=== PATIENT | female | born 2000 | race Hispanic/Latino ===

== ENCOUNTER 2023-01-24 21:26 | Emergency (ER) | payer OTHER ==
[2023-01-24 22:44] LABS: SARS-CoV-2 NAA Rapid Test Not Detected (NotDetected)
== END 2023-01-24 23:14 | disposition home or self-care (01) ==
LOC: CSHERS 21:26
DX: O99.891 Other specified diseases and conditions complicating pregnancy (principal); R11.0 Nausea; Z20.822 Contact with and (suspected) exposure to COVID-19; Z3A.38 38 weeks gestation of pregnancy
CPT/HCPCS: 99283

== ENCOUNTER 2023-02-09 10:37 | Inpatient (IN) | payer OTHER ==
[2023-02-09 21:39] VITALS: BMI 34.0
[2023-02-09] MEDS ORDERED: Ondansetron PF 4 MG/2 ML Vial IVP PRN (21:40)
[2023-02-09] MEDS ORDERED: hydrALAZINE 20 MG/ML VIAL SLOW IVP PRN (21:40)
[2023-02-09] MEDS ORDERED: Ibuprofen 800 MG TAB PO PRN (21:40)
[2023-02-09] MEDS ORDERED: Promethazine HCl 25 MG/ML VIAL IM PRN (21:40)
[2023-02-09] MEDS ORDERED: Oxytocin 30 units/NS 500 ML 500 ML IV SCH ×3 (21:40)
[2023-02-09] MEDS ORDERED: Methylergonovine 0.2 MG/ML VIAL IM PRN (21:40)
[2023-02-09] MEDS ORDERED: Carboprost 250 MCG/ML AMP IM PRN (21:40)
[2023-02-09] MEDS ORDERED: Diphenoxylate HCl/Atropine Tablet PO PRN (21:40)
[2023-02-09] MEDS ORDERED: Misoprostol 200 MCG TAB PR PRN (21:40)
[2023-02-09] MEDS ORDERED: fentaNYL 50 mcg/mL 1 mL Vial SLOW IVP PRN (21:40)
[2023-02-09] MEDS ORDERED: Acetaminophen 500 MG TAB PO PRN (21:40)
[2023-02-09] MEDS ORDERED: Tranexamic Acid 1,000 MG/10 ML VIAL IVP PRN (21:40)
[2023-02-09] MEDS ORDERED: Lidocaine 1% (PF) 30 ML VIAL SC PRN (21:40)
[2023-02-09] MEDS ORDERED: HYDROcodone/Acetaminophen 5/325 mg Tablet PO PRN (21:40)
[2023-02-09] MEDS: Lactated Ringer's 1,000 ML IV SCH (22:23)
[2023-02-09 22:42] LABS: Hemoglobin 12.1 g/dL (12.0-15.5); Mean Corpuscular HGB CONC 34.6 g/dL (32.0-36.0); Mean Corpuscular Hemoglobin 31.8 pg (27.0-33.0); Mean Corpuscular Volume 92.1 fl (81.6-98.3); Mean Platelet Volume 9.8 fl (7.4-10.4); Platelet Count 268 10x3/uL (150-450); RBC Distribution Width 13.2 % (11.5-14.5); White Blood Cell (WBC) Count 10.8 10x3/uL (3.5-10.5)
[2023-02-09] MEDS: Misoprostol 100 MCG TAB VAG SCH (22:48)
[2023-02-09 23:18] LABS: HBSAg Index 0.17 S/CO (0-0.99); Hep B Surf Ag - L&D Non-Reactive S/CO (NonReactive)
[2023-02-09 23:19] LABS: Syphilis Antibody Nonreactive (Nonreactive); Syphilis Antibody Index 0.05 S/CO (<1.00 Non-Reactive)
[2023-02-10] MEDS: Lactated Ringer's 1,000 ML IV SCH (02:57)
[2023-02-10 07:55] LABS: RapidComm Collect By CBN
[2023-02-10 07:56] LABS: RapidComm Collect By CBN; pH (Cord, venous) 7.335 (7.250-7.350)
[2023-02-10] MEDS ORDERED: Benzocaine-Menthol 82.5 ML CAN TOP PRN (08:30)
[2023-02-10] MEDS ORDERED: Oxytocin 30 units/NS 500 ML 500 ML IV SCH (08:30)
[2023-02-10] MEDS ORDERED: Ferrous Sulfate 325 MG TAB PO SCH (08:30)
[2023-02-10] MEDS ORDERED: Lanolin Ointment 7 GM TUBE TOP PRN (08:30)
[2023-02-10] MEDS ORDERED: HYDROcodone/Acetaminophen 5/325 mg Tablet PO PRN (08:30)
[2023-02-10] MEDS ORDERED: diphenhydrAMINE 25 MG CAP PO PRN (08:30)
[2023-02-10] MEDS ORDERED: Ondansetron PF 4 MG/2 ML Vial IVP PRN (08:30)
[2023-02-10] MEDS ORDERED: hydrALAZINE 20 MG/ML VIAL SLOW IVP PRN (08:30)
[2023-02-10] MEDS ORDERED: Boostrix 0.5 ML (Tdap) VIAL (>/=7 yrs of age) IM ONE (08:30)
[2023-02-10] MEDS ORDERED: Bisacodyl 10 MG SUPP PR PRN (08:30)
[2023-02-10] MEDS ORDERED: Promethazine HCl 25 MG/ML VIAL IM PRN (08:30)
[2023-02-10] MEDS ORDERED: Milk Of Magnesia 30 ML UDCUP PO PRN (08:30)
[2023-02-10] MEDS: Docusate 100 MG CAP PO SCH ×2 (09:20→20:56)
[2023-02-10] MEDS: Prenatal Vitamin 1 TAB PO SCH (09:20)
[2023-02-10] MEDS: Misoprostol 100 MCG TAB VAG SCH ×2 (12:55→12:56)
[2023-02-10] MEDS: Ibuprofen 800 MG TAB PO SCH ×2 (14:14→20:56)
[2023-02-11] MEDS: Ibuprofen 800 MG TAB PO SCH (05:15)
[2023-02-11 07:47] VITALS: BP 131/76; TEMP 98.4
[2023-02-11] MEDS: Docusate 100 MG CAP PO SCH (08:44)
[2023-02-11] MEDS: Prenatal Vitamin 1 TAB PO SCH (08:44)
== END 2023-02-11 11:55 | disposition home or self-care (01) | DRG 807 ==
LOC: CSHLD 21:10 → CSHPP 02-10 10:09
PROVIDERS: ADMIT Family Medicine; ATTEND Family Medicine
PROC: 10E0XZZ Delivery of Products of Conception, External Approach (ICD-10-PCS; principal; 2023-02-10)
PROC: 3E0P7VZ Introduction of Hormone into Female Reproductive, Via Natural or Artificial Opening (ICD-10-PCS; 2023-02-10)
DX: O80 Encounter for full-term uncomplicated delivery (principal); Z37.0 Single live birth; Z3A.40 40 weeks gestation of pregnancy
CPT/HCPCS: 82805; 85027; 86780; 86850; 86900; 86901; 87340; J2550; J3010; J7120

== ENCOUNTER 2023-03-03 08:03 | Emergency (ER) | payer OTHER ==
[2023-03-03] MEDS ORDERED: Acetaminophen 500 MG TAB ONE (08:39)
[2023-03-03 08:50] LABS: #Basophils 0.1 10x3/uL (0.0-0.2); #Eosinphils 0.2 10x3/uL (0.0-0.5); #Monocytes 0.8 10x3/uL (0.0-1.1); #Neutrophils 9.3 10x3/uL (1.5-8.4); %Basophils 0.4 % (0.0-2.0); %Eosinophils 1.7 % (0.0-6.0); %Lymphocytes 15.9 % (18.0-47.0); %Monocytes 6.3 % (0.0-10.0); %Neutrophils 75.5 % (40.0-75.0); Hematocrit 42.5 % (34.9-44.5); Hemoglobin 14.7 g/dL (12.0-15.5); Mean Corpuscular HGB CONC 34.6 g/dL (32.0-36.0); Mean Corpuscular Hemoglobin 31.1 pg (27.0-33.0); Mean Corpuscular Volume 89.9 fl (81.6-98.3); Platelet Count 303 10x3/uL (150-450); RBC Distribution Width 12.5 % (11.5-14.5); Red Blood Cell (RBC) Count 4.73 10x6/uL (3.90-5.03); White Blood Cell (WBC) Count 12.3 10x3/uL (3.5-10.5)
[2023-03-03 08:53] LABS: Bilirubin Neg (Negative); Blood, Urine 50 (Negative); Glucose, Urine (Dipstick) Normal (Negative); Ketone, Urine Negative (Negative); Leukocyte 500 (Negative); Nitrite Negative (Negative); Protein, Urine (Dipstick) Negative (Neg-Trace); Urobilinogen Normal mg/dL (Less than 2)
[2023-03-03 09:01] LABS: Clarity Slightly Cloudy (Clear)
[2023-03-03 09:12] LABS: Bacteria/HPF 3+ HPF (None Seen); CAUTI Indications for Culture Dysuria,urgency,freq; Transitional Epithelial 0-3 HPF (None Seen)
[2023-03-03 09:13] LABS: Urine Culture Reflex Yes Yes
[2023-03-03 09:28] LABS: ALT (SGPT) 37 U/L (8-55); AST (SGOT) 35 U/L (5-34); Albumin 4.4 g/dL (3.5-5.0); Alkaline Phosphatase 135 U/L (40-110); Anion Gap 13 mmol/L (10-20); BUN (Urea Nitrogen) 8 mg/dL (7.0-18.7); Bilirubin, Total 0.4 mg/dL (0.2-1.2); Calc. Creatinine Clearance 0 mL/min (70-130); Calcium 9.1 mg/dL (7.8-10.44); Carbon Dioxide 23 mmol/L (22-29); Chloride 105 mmol/L (98-107); Estimated GFR 117; Globulin 3.3 g/dL (2.4-3.5); Glucose 104 mg/dL (70-105); Magnesium 1.8 mg/dL (1.6-2.6); Potassium 4.4 mmol/L (3.5-5.1); Protein, Total 7.7 g/dL (6.0-8.3); Sodium 137 mmol/L (136-145)
[2023-03-04 13:17] LABS: Chlamydia by PCR, Vaginal Swab Not Detected (NotDetected); GC by PCR, Vaginal Swab Not Detected (NotDetected)
[2023-03-04 13:25] LABS: Chlam.trachomatis by PCR,Urine Not Detected (NotDetected); GC N.gonorrhoeae PCR,UrineVOID Not Detected (NotDetected)
== END 2023-03-03 10:00 | disposition home or self-care (01) ==
LOC: CSHERS 08:03
DX: O86.20 Urinary tract infection following delivery, unspecified (principal); Z20.822 Contact with and (suspected) exposure to COVID-19
CPT/HCPCS: 80053; 81001; 83735; 85025; 87086; 87480; 87491; 87510; 87591; 87635; 87660; 87804; 99284

== ENCOUNTER 2023-03-27 21:19 | Emergency (ER) | payer OTHER ==
[2023-03-27] MEDS ORDERED: Acetaminophen 500 MG TAB ONE (21:53)
[2023-03-27 22:10] LABS: Bilirubin Neg (Negative); Blood, Urine 10 (Negative); Clarity Clear (Clear); Glucose, Urine (Dipstick) Normal (Negative); Ketone, Urine 15 mg/dL (Negative); Leukocyte 500 (Negative); Nitrite Negative (Negative); Protein, Urine (Dipstick) Negative (Neg-Trace); Urobilinogen Normal mg/dL (Less than 2)
[2023-03-27 22:27] LABS: Bacteria/HPF 1+ HPF (None Seen); CAUTI Indications for Culture Pelvic or flank pain; RBC/HPF 0-3 HPF (0-3)
[2023-03-27 22:28] LABS: Urine Culture Reflex Yes Yes
[2023-03-27 22:52] LABS: SARS-CoV-2 NAA Rapid Test Not Detected (NotDetected)
[2023-03-27 22:54] LABS: ALT (SGPT) 25 U/L (8-55); AST (SGOT) 17 U/L (5-34); Albumin 4.2 g/dL (3.5-5.0); Alkaline Phosphatase 103 U/L (40-110); Anion Gap 14 mmol/L (10-20); BUN (Urea Nitrogen) 7 mg/dL (7.0-18.7); Bilirubin, Total 0.5 mg/dL (0.2-1.2); Calc. Creatinine Clearance 0 mL/min (70-130); Calcium 8.9 mg/dL (7.8-10.44); Carbon Dioxide 20 mmol/L (22-29); Chloride 106 mmol/L (98-107); Estimated GFR 125; Globulin 2.9 g/dL (2.4-3.5); Glucose 84 mg/dL (70-105); Potassium 3.8 mmol/L (3.5-5.1); Protein, Total 7.1 g/dL (6.0-8.3); Sodium 136 mmol/L (136-145)
[2023-03-27 22:55] LABS: #Eosinphils 0.4 10x3/uL (0.0-0.5); #Monocytes 0.7 10x3/uL (0.0-1.1); #Neutrophils 9.6 10x3/uL (1.5-8.4); %Basophils 0.3 % (0.0-2.0); %Eosinophils 3.3 % (0.0-6.0); %Lymphocytes 11.3 % (18.0-47.0); %Neutrophils 78.8 % (40.0-75.0); Hematocrit 41.7 % (34.9-44.5); Hemoglobin 14.4 g/dL (12.0-15.5); Mean Corpuscular HGB CONC 34.5 g/dL (32.0-36.0); Mean Corpuscular Hemoglobin 30.8 pg (27.0-33.0); Mean Corpuscular Volume 89.1 fl (81.6-98.3); Mean Platelet Volume 9.9 fl (7.4-10.4); Platelet Count 265 10x3/uL (150-450); RBC Distribution Width 12.3 % (11.5-14.5); Red Blood Cell (RBC) Count 4.68 10x6/uL (3.90-5.03); White Blood Cell (WBC) Count 12.3 10x3/uL (3.5-10.5)
== END 2023-03-27 23:10 | disposition home or self-care (01) ==
LOC: CSHERS 21:19
DX: N39.0 Urinary tract infection, site not specified (principal); Z20.822 Contact with and (suspected) exposure to COVID-19
CPT/HCPCS: 80053; 81001; 85025; 87086; 99284

== ENCOUNTER 2023-04-21 10:52 | Emergency (ER) | payer OTHER ==
[2023-04-21 12:00] LABS: #Basophils 0.1 10x3/uL (0.0-0.2); #Eosinphils 0.1 10x3/uL (0.0-0.5); #Monocytes 0.5 10x3/uL (0.0-1.1); #Neutrophils 8.9 10x3/uL (1.5-8.4); %Basophils 0.5 % (0.0-2.0); %Eosinophils 0.5 % (0.0-6.0); %Lymphocytes 13.8 % (18.0-47.0); %Monocytes 4.3 % (0.0-10.0); %Neutrophils 80.6 % (40.0-75.0); Hemoglobin 14.2 g/dL (12.0-15.5); Mean Corpuscular HGB CONC 34.6 g/dL (32.0-36.0); Mean Corpuscular Hemoglobin 31.1 pg (27.0-33.0); Mean Corpuscular Volume 89.9 fl (81.6-98.3); Mean Platelet Volume 9.4 fl (7.4-10.4); Platelet Count 304 10x3/uL (150-450); Red Blood Cell (RBC) Count 4.56 10x6/uL (3.90-5.03); White Blood Cell (WBC) Count 11.1 10x3/uL (3.5-10.5)
[2023-04-21 12:05] LABS: Bilirubin Neg (Negative); Blood, Urine 250 (Negative); Glucose, Urine (Dipstick) Normal (Negative); Ketone, Urine 15 mg/dL (Negative); Leukocyte 25 (Negative); Nitrite Negative (Negative); Protein, Urine (Dipstick) 30 mg/dl (Neg-Trace); Specific Gravity, Urine 1.025 (1.005-1.030); Urobilinogen Normal mg/dL (Less than 2)
[2023-04-21 12:21] LABS: ALT (SGPT) 22 U/L (8-55); AST (SGOT) 22 U/L (5-34); Albumin 4.3 g/dL (3.5-5.0); Alkaline Phosphatase 122 U/L (40-110); Anion Gap 14 mmol/L (10-20); BUN (Urea Nitrogen) 7 mg/dL (7.0-18.7); Bilirubin, Total 0.5 mg/dL (0.2-1.2); Calc. Creatinine Clearance 0 mL/min (70-130); Calcium 8.8 mg/dL (7.8-10.44); Carbon Dioxide 20 mmol/L (22-29); Chloride 111 mmol/L (98-107); Estimated GFR 127; Globulin 2.9 g/dL (2.4-3.5); Glucose 97 mg/dL (70-105); Potassium 3.9 mmol/L (3.5-5.1); Protein, Total 7.2 g/dL (6.0-8.3); Sodium 141 mmol/L (136-145)
[2023-04-21 12:22] LABS: Clarity Hazy (Clear)
[2023-04-21 12:23] LABS: RBC/HPF 21-50 HPF (0-3)
[2023-04-21 12:24] LABS: Bacteria/HPF Rare-Few HPF (None Seen); CAUTI Indications for Culture Pelvic or flank pain; Mucous/LPF 1+ LPF (<2+); WBC/HPF 0-3 HPF (0-3)
[2023-04-21 12:25] LABS: Urine Culture Reflex No No
[2023-04-21 12:44] LABS: BHCG - Serum Negative (NEGATIVE); Pregs Control Background? CLEAR/WHITE (CLR/WHITE); Pregs Control Bar Appear? YES (CONTROL BAR)
== END 2023-04-21 13:31 | disposition home or self-care (01) ==
LOC: CSHERS 10:52
DX: N92.0 Excessive and frequent menstruation with regular cycle (principal)
CPT/HCPCS: 36415; 80053; 81001; 84702; 84703; 85025; 86900; 86901; 99284